=== PATIENT | female | born 1970 | race Caucasian/White ===

== ENCOUNTER 2020-12-12 15:13 | Outpatient (CLI) | payer OTHER, SELFPAY ==
--- NOTE | 2020-12-12 15:21 | XR_ITS ---
WS: [id number] Exam: XR foot LT min 3V* [id number] Date/Time of Exam: 12/12/2020 3:22 PM Reason For Exam: S97.82XA - Crushing injury of left foot, initial encounter No acute fracture or dislocation. Old third metatarsal fracture is noted. No soft tissue foreign bodi es are seen. There is an oblique fracture through the distal fibula with some separation. This has th e appearance of an acute fracture.: 1. No acute fracture of the foot. 2. Old third metatarsal fracture. 3. Acute appearing oblique fracture in the distal fibula with some separation. These findings were discussed by phone with CLEVELAND Gregory at 3:45 PM 12/12/2020
--- NOTE | 2020-12-12 16:21 | XRR_ITS ---
PROCEDURE INFORMATION: Exam: XR Left Tibia and Fibula Exam date and time: 12/12/2020 4:21 PM Age: 50 years old Clinical indication: Injury or trauma; Other: Horse stepped on foot and lower leg; Blunt trauma; Left; Injury date: 4 days ago; Additional info: S82.623v - other fracture of upper and lower end of unspe. . . TECHNIQUE: Imaging protocol: XR Left tibia and fibula. Views: 2 views. COMPARISON: No relevant prior studies available. FINDINGS: Bones/joints: Oblique fracture of the distal fibula diaphysis. No displacement. No angulation deformity. Soft tissues: Lateral ankle soft tissue swelling. XR/XR tibia fibula LT 2V [id number] IMPRESSION: Acute left distal fibular fracture.
== END 2020-12-12 15:14 | disposition home or self-care (01) ==
PROVIDERS: Visit Provider Emergency Medicine
DX: S97.82XA Crushing injury of left foot, initial encounter (principal); S82.832A Other fracture of upper and lower end of left fibula, initial encounter for closed fracture; X58.XXXA Exposure to other specified factors, initial encounter
CPT/HCPCS: 73590; 73630